=== PATIENT | male | born 1955 | race Caucasian/White ===

== ENCOUNTER → 2017-08-20 | Outpatient (CLI) | payer BC ==
--- NOTE | 2017-08-20 13:54 | RADRPT ---
PROCEDURE: XR Left Hip and pelvis. CLINICAL INDICATION: Left hip pain. Pelvic pain. TECHNIQUE: Two views. Frontal pelvis and lateral left hip. COMPARISON: No prior studies are available for comparison. FINDINGS: There is no fracture or dislocation. The soft tissues are normal. There are degenerative changes of the left hip with joint space narrowing, osteophytes, subarticular sclerosis, and subarticular cysts. There is no other lytic or blastic lesion. There is no radiopaque foreign body. The upper pelvis is not included on the images. IMPRESSION: 1. Moderate degenerative changes of the left hip. 2. Otherwise unremarkable study. RPTAT: QQ .Jose Gilbert MD, MD Date Time Electronically viewed and signed by .Jose Gilbert MD, MD on 08/20/2017 13:53 .R/
--- NOTE | 2017-08-21 04:25 | HKNOTE ---
DATE OF SERVICE: 08/20/2017 MAIN COMPLAINT: Pain in the left hip. HISTORY OF MAIN COMPLAINT: The patient is a 62-year-old male who complains of pain in his left groi n which has been present for about 2-1/2 years, but has become much worse in the past 6 months. The re has not been any history of injury. He has no symptoms in his right hip. PRESENT COMPLAINTS: The pain in his left hip is predominantly in the groin but radiates down the an terior aspect of the left thigh as far as just above the knee. Pain started off moderately but now is severe on a daily basis. Patient's pain is aggravated by sneezing and by weightbearing. In the morning, has a great deal of difficulty lifting his leg and has to use his hands to raise his leg up. He is able to walk as far as he needs to, but he gets pain in his groin with every step that he takes. He recently took up bi ke riding and he can ride 5 miles at a time 2 to 3 times a week, which makes his hip feels "better". He does get rest pain after walking and he gets night pain when going to sleep and once he is comfor table. He has been taking Aleve in a double dose for the pain. He limps all the time. He does not have a shoe lift. He can clip his toenails. It is very difficult for him to put on shoes and sock s on the left foot. At present he can only play golf, he used to be involved in baseball, basketbal l and bowling. PAST ORTHOPEDIC HISTORY: PREVIOUS ORTHOPEDIC OPERATIONS: Surgery to the right foot in [address] Augustine. Left foot in [address] Saba. ALCOHOL INTAKE: 1 or 2 beverages a night. CORTISONE INTAKE: None OTHER JOINT PROBLEMS: Right knee: The patient had a torn meniscus 10 years ago which was treated a rthroscopically by . He had actually no pain until recently he started developing some sarika n in the right knee. The knee does not swell, lock or feel unstable. Right shoulder: Moderate deg enerative changes in the acromioclavicular joint with mild degenerative changes of glenohumeral join t. BLOOD TESTS FOR ARTHRITIS: None. PRIOR INJURIES TO HIPS OR KNEES: At the age of 37 he landed on his left hip playing basketball. Th ere is no pain at that time and he recovered very rapidly. 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 PAST MEDICAL HISTORY: Hypertension. PAST SURGICAL HISTORY: Hernia repair in 2016, sinus surgery 2016, left foot bone spur removed 2014, right foot bone spur removed 2014, left knee arthroscopic surgery 2006. DRUG ALLERGIES (? "STEROIDS"). MEDICATIONS: Lisinopril 20 mg daily in the a.m. FAMILY HISTORY: Father at 42 of unstated cause. Mother at 75, unstated cause. SYSTEMS REVIEW: Prone to "heartburn", gait disturbance, hypertension, hemorrhoids, otherwise negati ve. HABITS: The patient smoked half a pack of cigarettes daily for 30 years. He drinks 1 to 2 alcoholi c beverages a day. DIRECTOR REACTOR PROJECTS: Dr. Roman [id number] [facility] [id number] [id number]. PHYSICAL EXAMINATION: GENERAL: The patient is an extremely fit looking and youthful 62-year-old male. VITAL SIGNS: Height 6 feet 2 inches, weight 230 pounds, blood pressure 160/80, temperature 97.6. G AIT: The patient's gait is antalgic. He walks without a walking aid. NEUROLOGIC: Motor examination reveals no muscle deficit in the lower extremities. Deep tendon refle xes in the lower extremities: Right knee jerk +, left knee jerk +, right ankle jerk +, left ankle j erk +. Straight leg raising is negative bilaterally at 80 degrees. Lasegue and RHEA tests are negat enrique. HIPS: Examination of the right hip: A full range of motion without pain. Examination of the left hip: Flexion is 100, external rotation 25 degrees, internal rotation 0 degrees, abduction 30 degree s, adduction 0 degrees. Marked pain in the left groin at the limits of motion. RIGHT KNEE: The right knee shows normal alignment. Active and passive extension is 0 degrees. Activ e and passive flexion is 135 degrees. The medial and lateral collateral ligaments and cruciate ligam ents are intact. Vasquez test is negative. There is no effusion, tenderness, scarring, crepitus, or cysts. The patella tracks normally. There is no tenderness on the articular surface of the patella o r in the patellar groove. The Q angle is normal. 1+ effusion. LEFT KNEE: The left knee shows normal alignment. Active and passive extension is 0 degrees. Active and passive flexion is 135 degrees. The medial and lateral collateral ligaments and cruciate ligamen ts are intact. Vasquez test is negative. There is no effusion, tenderness, scarring, crepitus, or cy sts. The patella tracks normally. There is no tenderness on the articular surface of the patella or in the patellar groove. The Q angle is normal. IMAGING: Plain x-rays of the pelvis and hips obtained today at [facility] were sharon asencio. These show mild to moderate congenital dysplasia of both hips. The right hip is otherwise normal. The left hip shows quite marked narrowing of the hip joint space, but not bone to bone. S ubchondral sclerosis is present. Small osteophytes are present. DIAGNOSES 1. Congenital dysplasia of both hips. 2. Symptomatic degenerative osteoarthritis of the left hip. 3. Possible osteoarthritis of the right knee. 4. Hypertension. 5. Possible torn rotator cuff of the left shoulder. MANAGEMENT: The patient is advised that he would definitely need to have a left hip replacement at some time in the fairly near future. The right hip may develop osteoarthritis as a result of the dy splasia, but certainly would not need any intervention for at least another 4 or 5 years. The operation of hip replacement was discussed with him in a fair amount of detail including some of the major possible complications. The patient was given my manual titled "Arthritis of the Hip Joint" which contains information dennise rning the various alternatives of treatment. It includes various forms of conservative treatment, in cluding the use of nonsteroidal anti-inflammatory medications and their dangers. Various surgical al ternatives are discussed. The technique of total hip replacement is discussed in detail, including p ossible complications. Included also is a section on the possible complications of blood transfusion , a section on postoperative precautions, and an exercise program to follow at home after total hip replacement. The long-term care of a total hip replacement implant is also covered in detail. The blane sunshine was instructed to read this manual in its entirety since it is, in and of itself, a form of in formed consent. After reading this manual, the patient will make a list of further questions that jeff y not have been covered adequately. The patient was further advised that this manual, although exhau stive in nature, is only intended to supplement and complement a one-on-one discussion with me. The patient was referred to my website [email or web address]. FINAL DIAGNOSES: 1. Congenital dysplasia of both hips. 2. Symptomatic degenerative osteoarthritis of the left hip. 3. Possible osteoarthritis of the right knee. 4. Hypertension. 5. Possible torn rotator cuff of the left shoulder. Patient is advised that because of my own back injury, I will not the operating room for 3 or 4 genesis hs and that if he decides to have the surgery before I am back operating again, I recommend that he have Dr. Jonas Gomez perform the operation. The patient was given a card for Dr. Gomez. Dictated By: VANI ZACARIAS/YENNIFER Conf#: [id number] DID#: [id number]
== END | disposition home or self-care (01) ==
LOC: HKI 11:21
DX: Q65.89 Other specified congenital deformities of hip (principal); M16.12 Unilateral primary osteoarthritis, left hip; I10 Essential (primary) hypertension; M19.012 Primary osteoarthritis, left shoulder; Z72.0 Tobacco use
CPT/HCPCS: 73502; G0463

== ENCOUNTER → 2017-09-02 | Outpatient (CLI) | payer BC ==
--- NOTE | 2017-09-02 11:54 | RADRPT ---
PROCEDURE: Right knee radiographs. CLINICAL INDICATION: Right knee pain. TECHNIQUE: Three views. Weight bearing. Frontal, lateral, and patellar view. COMPARISON: No prior studies are available for comparison. FINDINGS: There is no fracture or dislocation. The soft tissues are normal. There are degenerative changes with small osteophytes arising from all 3 joint compartment margins. There is no joint space narrowing. There is no lytic or blastic lesion. There is no radiopaque foreign body. IMPRESSION: 1. Mild degenerative changes. 2. Otherwise unremarkable images of the right knee. RPTAT: QQ .Jose Gilbert MD, MD Date Time Electronically viewed and signed by .Jose Gilbert MD, MD on 09/02/2017 11:54 .R/
--- NOTE | 2017-09-03 04:10 | HKNOTE ---
DATE OF SERVICE: 09/02/2017 ORTHOPEDIC SURGERY CONSULTATION MAIN COMPLAINT: Left hip pain. HISTORY OF PRESENT ILLNESS: The patient is a 62-year-old healthy male who presents with persistent worsening left groin pain. Pain has been there for approximately the last 3 years, but has been wor sening, especially over the last 6 months. He has no prior history of hip trauma or hip problems. He has tried Aleve which does not significantly help, as well as exercise. The pain is now severe a nd severely interferes with his activities of daily living. PAST SURGICAL HISTORY: Right foot surgery and left foot surgery. SOCIAL HISTORY: Nonsmoker, drinks 1 to 2 alcoholic beverages per day. PAST MEDICAL HISTORY: Hypertension. MEDICATIONS: Lisinopril 20 mg p.o. q.a.m. FAMILY HISTORY: No history of inflammatory arthritis. REVIEW OF SYSTEMS: Heartburn, gait disturbance, hypertension, hemorrhoids, but otherwise negative. PHYSICAL EXAMINATION: VITAL SIGNS: He is 6 feet 2 inches tall, weighs 230 pounds. GENERAL: Alert and oriented, no acute distress. EXTREMITIES: Left lower extremity shows the skin is intact with no erythema, edema or discharge. T here is no tenderness to palpation at the hip. Hip range of motion is decreased with crepitus, with severe pain upon hip flexion and internal rotation. There is minimal limb length discrepancy. The limbs are both grossly and neurovascularly intact. IMAGIN08/20/2017, left hip x-rays show significant joint space narrowing, osteophyte formation a nd subchondral sclerosis. IMPRESSION: Left hip osteoarthritis. PLAN: 1. The patient was instructed about options with regard to his left hip, ranging from continued con servative management to total hip arthroplasty. He was told that the risks of his total hip arthrop lasty include, but not limited to, pain, bleeding, infection, stiffness, dislocation, fracture, limb length discrepancy, loosening of the implant, infection, need for revision, lateral thigh numbness, nerve vessel or tendon damage, deep venous thrombosis with pulmonary embolism and the risks of anes thesia. He understands all these risks and strongly wishes to proceed with surgery as stated. 2. Preoperative internal medicine clearance. 3. Total joint replacement information handout given. 4. To OR for left total hip arthroplasty when the patient is ready, at a time which is convenient f or him. Dictated By: ANGELICA QUILES/YENNIFER Conf#: [id number] DID#: [id number]
== END | disposition home or self-care (01) ==
LOC: HKI 09:59
PROVIDERS: ATTEND Orthopaedic Surgery
DX: M16.12 Unilateral primary osteoarthritis, left hip (principal); I10 Essential (primary) hypertension; R26.9 Unspecified abnormalities of gait and mobility; R12 Heartburn; K64.9 Unspecified hemorrhoids
CPT/HCPCS: 73562; G0463

== ENCOUNTER 2017-10-21 07:06 | Inpatient (IN) | END 2017-10-22 15:50 | disposition home health service (06) | DRG 470 ==

== ENCOUNTER → 2017-11-04 | Outpatient (CLI) | END | disposition home or self-care (01) ==

== ENCOUNTER → 2017-12-09 | Outpatient (CLI) | END | disposition home or self-care (01) ==

== ENCOUNTER → 2018-01-06 | Outpatient (CLI) | END | disposition home or self-care (01) ==